=== PATIENT | female | born 1970 | race Two or more races ===

== ENCOUNTER 2021-07-04 21:08 | Emergency (ER) | payer SELFPAY ==
[~2021-07-04] VITALS: Ht 170.2 cm; Wt 68.0 kg
[2021-07-04 21:35] VITALS: BP 151/75
== END 2021-07-04 22:32 | disposition left against medical advice (07) ==
LOC: EDBD 21:08 → ER 21:15
DX: R42 Dizziness and giddiness (principal); R25.1 Tremor, unspecified; Z53.21 Procedure and treatment not carried out due to patient leaving prior to being seen by health care provider
CPT/HCPCS: 93005